=== PATIENT | female | born 1990 | race Caucasian/White ===

== ENCOUNTER 2018-01-25 12:52 | Emergency (ER) | payer OTHER ==
[~2018-01-25] VITALS: Ht 157.5 cm; Wt 54.4 kg
[2018-01-25 13:02] VITALS: BP 132/80
[2018-01-25] MEDS ORDERED: ALPRAZolam 0.5 MG TAB PO STA (13:24)
[2018-01-25] MEDS ORDERED: ACETAMINOPHEN EXTRA STRENGTH 500 MG TAB PO ONE (15:15)
[2018-01-25] MEDS ORDERED: IBUPROFEN 600 MG TAB PO ONE (15:15)
[2018-01-25 16:24] VITALS: BP 132/80
== END 2018-01-25 16:27 | disposition home or self-care (01) ==
LOC: MED 12:52
DX: R51 Headache (principal); H57.11 Ocular pain, right eye; F17.200 Nicotine dependence, unspecified, uncomplicated; H92.02 Otalgia, left ear; F41.9 Anxiety disorder, unspecified
CPT/HCPCS: 70486; 71046; 99284